=== PATIENT | female | born 1970 | race Hispanic/Latino ===

== ENCOUNTER 2016-06-11 22:25 | Emergency (ER) | payer OTHER ==
[~2016-06-11] VITALS: Ht 162.6 cm; Wt 85.0 kg
[~2016-06-11 22:25] MED LIST: ASPIRIN81 M1 PO; CEFDINIR300 MG PO; CHILD ASPIRIN81 M1 PO; CLARITIN,ALAVAR10 MG PO; ERYTHROMYC1 APPLICAT LEFT EYE; FLONASE ALLERG9.9 ML BOTH NARES; HYDROCODON-ACE1 EAC7 PO; LEVAQUIN750 MG PO; LOPRESSOR25 MG PO; LOPRESSOR50 MG PO; Lopressor PO; MOTRIN600 MG PO; Motrin PO; NAPROSYN500 MG PO; NEXIUM20 MG PO; NORCO 7.5/321 TABLET PO; OCUFLOX 0.100 DROP/5 BOTH EYES; PRAVACHOL40 MG PO; PRILOSEC10 MG PO; PRILOSEC20 MG PO; PROMETHAZINE HC25 M1 PO; Protonix PO; RANITIDINE HCL300 M1 PO; TRAMADOL HCL50 MG PO; ULTRAM50 MG PO; Ultram PO; ZOFRAN ODT4 MG PO; ZOFRAN4 MG PO
[2016-06-11 22:53] LABS: HEMATOCRIT 36.8 % (36.0-46.0); MCHC 35.3 G/DL (30.0-36.0); MCV 87.8 FL (83-99); MEAN PLAT.VOLUME 9.1 uM^3 (9.5-12.4); PLATELET COUNT 278 K/uL (156-360); RBC DIS.WIDTH-SD 40.4 % (39-53); RED BLOOD COUNT 4.19 M/uL (3.80-5.20); WHITE BLOOD COUNT 11.5 K/uL (4.1-10.2)
[2016-06-11 22:58] LABS: ADD MIUA? YES; BILIRUBIN NEGATIVE; BLOOD NEGATIVE; COLOR YELLOW ((YELLOW)); GLUCOSE (STRIP) NEGATIVE; KETONES NEGATIVE; LEUKOCYTES TRACE; NITRITE NEGATIVE; PROTEIN (STRIP) NEGATIVE; SPECIFIC GRAVITY 1.014 (1.000-1.030); UROBILINOGEN 0.2 MG/DL (0.2-1.0)
[2016-06-11 23:03] LABS: CHLORIDE 109 mEq/L (99-109); POTASSIUM 3.8 mEq/L (3.7-5.4); SODIUM 139 mEq/L (136-147)
[2016-06-11 23:05] LABS: GLUCOSE 113 mg/dL (70-99)
[2016-06-11 23:07] LABS: ANION GAP 11 MEQ/L (2-14); TOTAL BILIRUBIN 0.2 mg/dL (0.0-1.0)
[2016-06-11 23:09] LABS: ALKALINE PHOSPHATASE 80 IU/L (3-129); GFR ESTIMATE (CALCULATED) > 59 mL/min/
[2016-06-11 23:10] LABS: UREA NITROGEN (BUN) 10 mg/dL (9-23)
[2016-06-11 23:18] LABS: QUANTITATIVE HCG < 4.0 MIU/ML
[2016-06-11 23:22] LABS: BACTERIA RARE; CASTS NONE SEEN /LPF; CRYSTALS NONE SEEN; EPITHELIAL CELLS RARE; MUCUS NONE SEEN; RED BLOOD CELLS NONE SEEN /HPF (0-5); UCUL ADDED? NO; WHITE BLOOD CELLS 0-5 /HPF (0-5)
[2016-06-12 00:37] LABS: TROP-I INTERPRETATION NEGATIVE; TROPONIN-I < 0.01 ng/mL (0.0-0.30)
[2016-06-12 00:44] LABS: D-DIMER ELISA 0.43 mg/L FEU (< 0.57)
[2016-06-12] MEDS ORDERED: ZITHROMAX Z-PA250 MG PO (01:59)
[2016-06-12] MEDS ORDERED: NAPROXEN500 MG PO (01:59)
[2016-06-12 02:08] VITALS: BP 127/87
== END 2016-06-12 02:15 | disposition home or self-care (01) ==
LOC: EME 22:25
DX: J40 Bronchitis, not specified as acute or chronic (principal); R07.81 Pleurodynia; R30.0 Dysuria; R35.0 Frequency of micturition; E78.5 Hyperlipidemia, unspecified
CPT/HCPCS: 71020; 80053; 81003; 84484; 84702; 85027; 85379; 99281; 99284

== ENCOUNTER 2017-06-19 16:59 | Emergency (ER) | payer OTHER ==
[~2017-06-19] VITALS: Ht 162.6 cm; Wt 87.5 kg
[~2017-06-19 16:59] MED LIST changes: +NAPROXEN500 MG PO; +ZITHROMAX Z-PA250 MG PO
[2017-06-19 18:19] LABS: HEMATOCRIT 39.6 % (36.0-46.0); HEMOGLOBIN 13.7 G/DL (11.9-15.5); MCH 31.1 PG (29.0-34.0); MCHC 34.6 G/DL (30.0-36.0); PLATELET COUNT 260 K/uL (156-360); RBC DIS.WIDTH-CV 12.9 % (11.8-14.6); RBC DIS.WIDTH-SD 42.3 % (39-53); WHITE BLOOD COUNT 9.7 K/uL (4.1-10.2)
[2017-06-19 18:30] LABS: CHLORIDE 107 mEq/L (99-109); POTASSIUM 4.1 mEq/L (3.7-5.4); SODIUM 140 mEq/L (136-147)
[2017-06-19 18:31] LABS: GLUCOSE 99 mg/dL (70-99)
[2017-06-19 18:35] LABS: CREATININE 0.7 mg/dL (0.6-1.3); GFR ESTIMATE (CALCULATED) > 59 mL/min/
[2017-06-19 18:36] LABS: UREA NITROGEN (BUN) 9 mg/dL (9-23)
[2017-06-19 18:39] LABS: TROP-I INTERPRETATION NEGATIVE; TROPONIN-I < 0.01 ng/mL (0.0-0.30)
[2017-06-19 18:47] LABS: QUANTITATIVE HCG < 4.0 MIU/ML
[2017-06-19] MEDS ORDERED: FIORICET 50-301 EAC1 PO (19:03)
[2017-06-19 19:22] VITALS: BP 147/89
== END 2017-06-19 19:22 | disposition home or self-care (01) ==
LOC: EXP 16:59 → EME 16:59 → EXP 19:22
PROVIDERS: Nurse Practitioner Family
DX: G43.909 Migraine, unspecified, not intractable, without status migrainosus (principal); B34.9 Viral infection, unspecified; J45.909 Unspecified asthma, uncomplicated; E78.5 Hyperlipidemia, unspecified; I10 Essential (primary) hypertension; K21.9 Gastro-esophageal reflux disease without esophagitis
CPT/HCPCS: 70450; 71046; 80048; 84484; 84702; 85027; 93005; 99281; 99284; J1885

== ENCOUNTER 2017-10-04 14:03 | Observation (INO) | payer OTHER ==
[~2017-10-04] VITALS: Ht 165.1 cm; Wt 85.5 kg
[~2017-10-04 14:03] MED LIST changes: +FIORICET 50-301 EAC1 PO
[2017-10-04 14:59] LABS: BASOPHIL (%) 0.5 % (0-1); EOSINOPHIL (%) 1.4 % (0-5); EOSINOPHIL COUNT 0.1 K/uL (0-0.3); HEMATOCRIT 39.8 % (36.0-46.0); HEMOGLOBIN 13.7 G/DL (11.9-15.5); IMMATURE GRANULOCYTE (%) 0.3 % (0.0-0.7); LYMPHOCYTE (%) 32.2 % (15-42); LYMPHOCYTE COUNT 2.8 K/uL (1.0-2.8); MCH 30.6 PG (29.0-34.0); MCHC 34.4 G/DL (30.0-36.0); MCV 88.8 FL (83-99); MONOCYTE (%) 6.3 % (3-12); MONOCYTE COUNT 0.5 K/uL (0-0.8); NEUTROPHIL (%) 59.3 % (45-76); NEUTROPHIL COUNT 5.1 K/uL (1.8-6.4); PLATELET COUNT 308 K/uL (156-360); RBC DIS.WIDTH-CV 13.2 % (11.8-14.6); RBC DIS.WIDTH-SD 42.9 % (39-53); RED BLOOD COUNT 4.48 M/uL (3.80-5.20); WHITE BLOOD COUNT 8.6 K/uL (4.1-10.2)
[2017-10-04 15:08] LABS: ALBUMIN 4.3 g/dL (3.2-4.8); CHLORIDE 108 mEq/L (99-109); POTASSIUM 4.2 mEq/L (3.7-5.4); SODIUM 139 mEq/L (136-147)
[2017-10-04 15:10] LABS: GLUCOSE 92 mg/dL (70-99); TOTAL PROTEIN 7.6 g/dL (6.4-8.3)
[2017-10-04 15:12] LABS: TOTAL BILIRUBIN 0.4 mg/dL (0.0-1.0)
[2017-10-04 15:14] LABS: ALKALINE PHOSPHATASE 79 IU/L (3-129); CREATININE 0.8 mg/dL (0.6-1.3); GFR ESTIMATE (CALCULATED) > 59 mL/min/
[2017-10-04 15:15] LABS: UREA NITROGEN (BUN) 13 mg/dL (9-23)
[2017-10-04 15:16] LABS: AST (GOT) 22 IU/L (2-34)
[2017-10-04 15:17] LABS: ALT (GPT) 26 IU/L (3-49)
[2017-10-04 15:18] LABS: TROP-I INTERPRETATION NEGATIVE; TROPONIN-I < 0.01 ng/mL (0.0-0.30)
[2017-10-04 15:23] LABS: QUANTITATIVE HCG < 4.0 MIU/ML
[2017-10-04 16:17] LABS: HDL CHOLESTEROL 44 MG/DL (Desirable>=50); LDL CHOLESTEROL 188 mg/dL (Desirable<100); NON-HDL CHOLESTEROL 206 mg/dL (Desirable<160); TOTAL CHOLESTEROL 250 mg/dL (Desirable<200); TRIGLYCERIDES 89 MG/DL (Normal: <150)
[2017-10-04] MEDS ORDERED: PROVENTIL,2.5 MG/3 M IH (16:49)
[2017-10-04] MEDS ORDERED: ASPIR 8181 M1 PO (16:51)
[2017-10-04 17:36] LABS: THYROTROPIN (TSH) 1.1 MIU/L (0.4-5.5)
[2017-10-04 17:53] LABS: APPEARANCE CLEAR ((CLEAR)); BILIRUBIN NEGATIVE; BLOOD NEGATIVE; COLOR STRAW ((YELLOW)); GLUCOSE (STRIP) NEGATIVE; KETONES NEGATIVE; LEUKOCYTES NEGATIVE; NITRITE NEGATIVE; PROTEIN (STRIP) NEGATIVE; SPECIFIC GRAVITY 1.034 (1.000-1.030); UCUL ADDED? NO; UROBILINOGEN 0.2 MG/DL (0.2-1.0)
[2017-10-04 18:20] VITALS: BP 132/71
[2017-10-04 19:15] VITALS: BP 120/80
[2017-10-05] VITALS: BP 133/82
[2017-10-05 04:00] VITALS: BP 132/78
[2017-10-05 05:28] LABS: HEMATOCRIT 37.6 % (36.0-46.0); HEMOGLOBIN 12.6 G/DL (11.9-15.5); MCH 30.2 PG (29.0-34.0); MCHC 33.5 G/DL (30.0-36.0); MCV 90.2 FL (83-99); PLATELET COUNT 276 K/uL (156-360); RBC DIS.WIDTH-CV 13.2 % (11.8-14.6); RBC DIS.WIDTH-SD 43.5 % (39-53); RED BLOOD COUNT 4.17 M/uL (3.80-5.20); WHITE BLOOD COUNT 8.2 K/uL (4.1-10.2)
[2017-10-05 05:49] LABS: CHLORIDE 105 MEQ/L (99-109); CREATININE 0.9 MG/DL (0.6-1.3); GFR ESTIMATE (CALCULATED) > 59 mL/min/; GLUCOSE 89 mg/dL (70-99); POTASSIUM 4.2 MEQ/L (3.7-5.4); SODIUM 136 MEQ/L (136-147); UREA NITROGEN (BUN) 14 mg/dL (9-23)
[2017-10-05 09:14] VITALS: BP 118/81
[2017-10-05 10:20] LABS: HEMOGLOBIN A1c (GLYCOHEMOGLOB) 5.2 % (Below 5.7)
[2017-10-05 11:18] VITALS: BP 124/73
[2017-10-05 15:07] VITALS: BP 104/75
[2017-10-05 20:00] VITALS: BP 113/71
[2017-10-06 00:26] VITALS: BP 121/70
[2017-10-06 04:00] VITALS: BP 109/62
[2017-10-06 05:38] LABS: BASOPHIL (%) 0.5 % (0-1); BASOPHIL COUNT 0.1 K/uL (0-0.1); EOSINOPHIL (%) 1.5 % (0-5); EOSINOPHIL COUNT 0.1 K/uL (0-0.3); HEMOGLOBIN 13.1 G/DL (11.9-15.5); IMMATURE GRANULOCYTE (%) 0.3 % (0.0-0.7); LYMPHOCYTE (%) 32.3 % (15-42); LYMPHOCYTE COUNT 3.1 K/uL (1.0-2.8); MCHC 33.6 G/DL (30.0-36.0); MCV 89.2 FL (83-99); MONOCYTE COUNT 0.7 K/uL (0-0.8); NEUTROPHIL (%) 58.4 % (45-76); NEUTROPHIL COUNT 5.6 K/uL (1.8-6.4); PLATELET COUNT 292 K/uL (156-360); RBC DIS.WIDTH-CV 12.9 % (11.8-14.6); RBC DIS.WIDTH-SD 42.3 % (39-53); RED BLOOD COUNT 4.37 M/uL (3.80-5.20); WHITE BLOOD COUNT 9.6 K/uL (4.1-10.2)
[2017-10-06 05:59] LABS: CHLORIDE 103 MEQ/L (99-109); GFR ESTIMATE (CALCULATED) > 59 mL/min/; GLUCOSE 92 mg/dL (70-99); SODIUM 137 MEQ/L (136-147); UREA NITROGEN (BUN) 18 mg/dL (9-23)
[2017-10-06 07:45] VITALS: BP 126/81
[2017-10-06 13:21] VITALS: BP 121/83
[2017-10-06] MEDS ORDERED: TRAMADOL HCL50 MG PO (13:40)
== END 2017-10-06 15:50 | disposition home or self-care (01) ==
LOC: EME 14:03 → EDOF 16:52 → 4SOUTH 16:52 → EDOF 16:52 → ENRESERV 16:53 → 4SOUTH 17:55
PROVIDERS: Emergency Medicine; Hospitalist; Internal Medicine
DX: M50.122 Cervical disc disorder at C5-C6 level with radiculopathy (principal); M25.511 Pain in right shoulder; I10 Essential (primary) hypertension; E78.5 Hyperlipidemia, unspecified; K21.9 Gastro-esophageal reflux disease without esophagitis; G89.29 Other chronic pain; M54.5 Low back pain; E04.1 Nontoxic single thyroid nodule; Z90.710 Acquired absence of both cervix and uterus; Z82.49 Family history of ischemic heart disease and other diseases of the circulatory system; Z79.82 Long term (current) use of aspirin
CPT/HCPCS: 70450; 70496; 70498; 70551; 72141; 72148; 73030; 80048; 80053; 80061; 81003; 83036; 84439; 84443; 84484; 84702; 85025; 85027; 93005; 99281; 99285; G0378; J1650; J3010; J7040